=== PATIENT | female | born 1965 | race Caucasian/White ===

== ENCOUNTER → 2018-07-17 19:55 | Outpatient (REF) | payer MEDICARE, MEDICAID, SELFPAY ==
[2018-07-17 21:14] LABS: Amphetamine/Metha Screen,Urine Negative ng/mL (<1000); Barbiturates Screen,Urine Negative ng/mL (<200); Benzodiazepines Screen,Urine Negative ng/mL (<200); Cannabinoid Screen,Urine Positive ng/mL (<50); Cocaine Screen,Urine Negative ng/mL (<300); Methadone Screen,Urine Negative ng/mL (<300); Opiate Screen,Urine Negative ng/mL (<300); Phencyclidine Screen,Urine Negative ng/mL (<25)
== END ==
LOC: LAB 19:55
PROVIDERS: PCP Nurse Practitioner Family; Visit Provider Nurse Practitioner Family
DX: M79.7 Fibromyalgia (principal)
CPT/HCPCS: 80305

== ENCOUNTER → 2018-08-14 12:47 | Outpatient (CLI) | payer MEDICARE, MEDICAID, SELFPAY ==
[2018-08-14 14:06] LABS: Alanine Aminotransferase 76 U/L (12-78); Albumin Level 4.2 gm/dL (3.4-5.0); Albumin/Globulin Ratio 0.9 (1.1-1.8); Alkaline Phosphatase 86 U/L (46-116); Anion Gap 16.1 mEq/L (5-15); Aspartate Amino Transferase 49 U/L (15-37); Blood Urea Nitrogen 11 mg/dL (7-18); Calcium 9.5 mg/dL (8.5-10.1); Carbon Dioxide 27 mmol/L (21.0-32.0); Chloride 102 mmol/L (98-107); Creatinine,Serum 0.78 mg/dL (0.55-1.02); Estimated Glomerular Filt Rate 77 ml/min (>60); GFR (African American) 93 ML/MIN (>60); Globulin 4.6 gm/dl (1.3-3.2); Glucose 156 mg/dL (74-106); Potassium 4.1 mmoL/L (3.5-5.1); Sodium 141 mmol/L (136-145); Total Protein,Serum 8.8 gm/dL (6.4-8.2)
[2018-08-14 14:40] LABS: Basophils # 0.1 K/mm3 (0-0.2); Basophils % 0.9 % (0.1-2.0); Eosinophils # 0.2 K/mm3 (0.0-0.4); Eosinophils % 3.1 % (0.1-12.0); Hematocrit 51.6 % (37.0-47.0); Hemoglobin 16.7 g/dL (12.2-16.2); Lymphocytes # 3.3 K/mm3 (0.7-4.5); Lymphocytes % 43.7 % (10-50); Mean Corpuscular HGB Conc 32.3 g/dL (31.8-35.4); Mean Corpuscular Hemoglobin 29.4 pg (27.0-31.2); Mean Corpuscular Volume 90.8 fl (81-99); Monocytes # 0.6 K/mm3 (0.1-1.0); Monocytes % 7.8 % (1.7-9.3); Neutrophils # 3.3 K/mm3 (1.8-7.8); Neutrophils % 44.4 % (37.0-80.0); Platelet Count 241 K/mm3 (142-424); Red Blood Count 5.69 M/mm3 (4.20-5.40); Red Cell Distribution Width 13.3 % (11.5-17.5); White Blood Count 7.4 K/mm3 (4.8-10.8)
[2018-08-14 14:44] LABS: Erythrocyte Sedimentation Rate 28 mm/hr (0-30)
== END ==
PROVIDERS: Visit Provider Emergency Medicine
DX: K57.92 Diverticulitis of intestine, part unspecified, without perforation or abscess without bleeding (principal)
CPT/HCPCS: 80053; 85025; 85651

== ENCOUNTER → 2018-10-07 12:57 | Outpatient (POV) | payer MEDICARE, MEDICAID, SELFPAY | PROVIDERS: Visit Provider Specialist | DX: M79.641 Pain in right hand (principal); M79.642 Pain in left hand; R20.2 Paresthesia of skin | CPT/HCPCS: 95886; 95909 ==

== ENCOUNTER → 2018-12-06 19:00 | Outpatient (CLI) | payer MEDICARE, MEDICAID, SELFPAY ==
[2018-12-06 19:24] LABS: Amphetamine/Metha Screen,Urine Negative ng/mL (<1000); Barbiturates Screen,Urine Negative ng/mL (<200); Benzodiazepines Screen,Urine Negative ng/mL (<200); Cannabinoid Screen,Urine Negative ng/mL (<50); Cocaine Screen,Urine Negative ng/mL (<300); Methadone Screen,Urine Negative ng/mL (<300); Opiate Screen,Urine Negative ng/mL (<300); Phencyclidine Screen,Urine Negative ng/mL (<25)
== END ==
PROVIDERS: Visit Provider Nurse Practitioner Family
DX: M79.7 Fibromyalgia (principal)
CPT/HCPCS: 80305

== ENCOUNTER → 2021-01-19 18:07 | Outpatient (CLI) | payer MEDICARE, MEDICAID, SELFPAY ==
[2021-01-19 19:03] LABS: Benzodiazepines Screen,Urine Negative ng/ml (<200)
[2021-01-19 19:04] LABS: Amphetamine/Metha Screen,Urine Negative ng/ml (<1000)
[2021-01-19 19:05] LABS: Barbiturates Screen,Urine Negative ng/ml (<200); Cannabinoid Screen,Urine Positive ng/ml (<50)
[2021-01-19 19:06] LABS: Cocaine Screen,Urine Positive ng/ml (<300)
[2021-01-19 19:07] LABS: Methadone Screen,Urine Negative ng/ml (<300); Opiate Screen,Urine Negative ng/ml (<300)
[2021-01-19 19:08] LABS: Phencyclidine Screen,Urine Negative ng/ml (<25)
== END ==
PROVIDERS: Visit Provider Emergency Medicine
DX: M79.7 Fibromyalgia (principal)
CPT/HCPCS: 80305

== ENCOUNTER → 2021-01-31 16:32 | Outpatient (CLI) | payer MEDICARE, MEDICAID, SELFPAY ==
[2021-01-31 17:19] LABS: Amphetamine/Metha Screen,Urine Negative ng/ml (<1000)
[2021-01-31 17:20] LABS: Barbiturates Screen,Urine Negative ng/ml (<200); Benzodiazepines Screen,Urine Negative ng/ml (<200)
[2021-01-31 17:21] LABS: Cannabinoid Screen,Urine Negative ng/ml (<50)
[2021-01-31 17:24] LABS: Methadone Screen,Urine Negative ng/ml (<300); Opiate Screen,Urine Negative ng/ml (<300)
[2021-01-31 17:25] LABS: Phencyclidine Screen,Urine Negative ng/ml (<25)
[2021-01-31 17:27] LABS: Cocaine Screen,Urine Negative ng/ml (<300)
== END ==
PROVIDERS: Visit Provider Emergency Medicine
DX: Z79.899 Other long term (current) drug therapy (principal)
CPT/HCPCS: 80305

== ENCOUNTER → 2021-04-05 13:29 | Outpatient (CLI) | payer MEDICARE, MEDICAID, SELFPAY ==
[2021-04-05 14:26] LABS: Amphetamine/Metha Screen,Urine Negative ng/ml (<1000)
[2021-04-05 14:27] LABS: Barbiturates Screen,Urine Negative ng/ml (<200)
[2021-04-05 14:28] LABS: Benzodiazepines Screen,Urine Negative ng/ml (<200); Cocaine Screen,Urine Negative ng/ml (<300)
[2021-04-05 14:29] LABS: Methadone Screen,Urine Negative ng/ml (<300)
[2021-04-05 14:30] LABS: Cannabinoid Screen,Urine Negative ng/ml (<50)
[2021-04-05 14:31] LABS: Opiate Screen,Urine Negative ng/ml (<300); Phencyclidine Screen,Urine Negative ng/ml (<25)
== END ==
PROVIDERS: Visit Provider Emergency Medicine
DX: M79.7 Fibromyalgia (principal)
CPT/HCPCS: 80305

== ENCOUNTER → 2021-06-01 18:08 | Outpatient (CLI) | payer MEDICARE, MEDICAID, SELFPAY ==
[2021-06-01 19:01] LABS: Amphetamine/Metha Screen,Urine Negative ng/ml (<1000)
[2021-06-01 19:02] LABS: Barbiturates Screen,Urine Negative ng/ml (<200); Benzodiazepines Screen,Urine Negative ng/ml (<200)
[2021-06-01 19:07] LABS: Cannabinoid Screen,Urine Negative ng/ml (<50); Cocaine Screen,Urine Negative ng/ml (<300)
[2021-06-01 19:08] LABS: Methadone Screen,Urine Negative ng/ml (<300)
[2021-06-01 19:11] LABS: Opiate Screen,Urine Negative ng/ml (<300); Phencyclidine Screen,Urine Negative ng/ml (<25)
== END ==
PROVIDERS: Visit Provider Emergency Medicine
DX: Z79.899 Other long term (current) drug therapy (principal)
CPT/HCPCS: 80305

== ENCOUNTER → 2021-08-02 18:53 | Outpatient (CLI) | payer MEDICARE, MEDICAID, SELFPAY ==
[2021-08-02 19:50] LABS: Benzodiazepines Screen,Urine Negative ng/ml (<200)
[2021-08-02 19:51] LABS: Amphetamine/Metha Screen,Urine Negative ng/ml (<1000)
[2021-08-02 19:52] LABS: Barbiturates Screen,Urine Negative ng/ml (<200); Cannabinoid Screen,Urine Negative ng/ml (<50)
[2021-08-02 19:53] LABS: Cocaine Screen,Urine Negative ng/ml (<300)
[2021-08-02 19:54] LABS: Methadone Screen,Urine Negative ng/ml (<300); Opiate Screen,Urine Negative ng/ml (<300)
[2021-08-02 19:55] LABS: Phencyclidine Screen,Urine Negative ng/ml (<25)
== END ==
PROVIDERS: Visit Provider Emergency Medicine
DX: M79.7 Fibromyalgia (principal)
CPT/HCPCS: 80305

== ENCOUNTER → 2021-11-02 16:00 | Outpatient (CLI) | payer MEDICARE, MEDICAID, SELFPAY ==
[2021-11-01 22:02] LABS: Basophils # 0.1 K/mm3 (0-0.2); Basophils % 1.3 % (0.1-2.0); Eosinophils # 0.3 K/mm3 (0.0-0.4); Eosinophils % 3.7 % (0.1-12.0); Hematocrit 50.3 % (37.0-47.0); Hemoglobin 16.1 g/dL (12.2-16.2); Lymphocytes # 3.1 K/mm3 (0.7-4.5); Lymphocytes % 37.6 % (10-50); Mean Corpuscular HGB Conc 32.1 g/dL (31.8-35.4); Mean Corpuscular Hemoglobin 29.7 pg (27.0-31.2); Mean Corpuscular Volume 92.6 fl (81-99); Mean Platelet Volume 9.2 fl (7.4-10.4); Monocytes # 0.5 K/mm3 (0.1-1.0); Monocytes % 5.7 % (1.7-9.3); Neutrophils # 4.3 K/mm3 (1.8-7.8); Neutrophils % 51.8 % (37.0-80.0); Platelet Count 311 K/mm3 (142-424); Red Blood Count 5.43 M/mm3 (4.20-5.40); Red Cell Distribution Width 13.2 % (11.5-17.5); White Blood Count 8.3 K/mm3 (4.8-10.8)
[2021-11-01 22:25] LABS: Alanine Aminotransferase 23 U/L (12-78); Albumin Level 4.9 g/dl (3.5-5.0); Albumin/Globulin Ratio 1.6 (1.1-1.8); Alkaline Phosphatase 57 U/L (38-126); Anion Gap 16.8 mEq/L (5-15); Aspartate Amino Transferase 32 U/L (14-36); Bilirubin,Total 0.6 mg/dl (0.2-1.3); Blood Urea Nitrogen 14 mg/dl (7-17); Carbon Dioxide 24 mmol/L (22.0-30.0); Chloride 104 mmol/L (98-107); Chol/HDL Ratio 3.9 (1-3.5); Cholesterol 198 mg/dl (140-200); Estimated Glomerular Filt Rate 103 ml/min (>60); GFR (African American) 124 ML/MIN (>60); Glucose 132 mg/dl (74-100); HDL Cholesterol 51 mg/dl (40-60); Potassium 3.8 mmoL/L (3.5-5.1); Sodium 141 mmol/L (136-145); Total Protein,Serum 7.9 g/dl (6.3-8.2); Triglycerides 131 mg/dl (30-150); VLDL Cholesterol 26 mg/dL (0-40)
[2021-11-01 22:36] LABS: Direct LDL Cholesterol 120.37 mg/dL (100-129)
[2021-11-01 22:41] LABS: Free T4 (Free Thyroxine) 1.22 ng/dl (0.78-2.19)
[2021-11-01 22:54] LABS: Thyroid Stimulating Hormone 1.54 uIU/mL (0.465-4.68)
[2021-11-02 15:17] LABS: Benzodiazepines Screen,Urine Negative ng/ml (<200)
[2021-11-02 15:18] LABS: Amphetamine/Metha Screen,Urine Negative ng/ml (<1000)
[2021-11-02 15:19] LABS: Barbiturates Screen,Urine Negative ng/ml (<200); Cannabinoid Screen,Urine Negative ng/ml (<50)
[2021-11-02 15:20] LABS: Cocaine Screen,Urine Negative ng/ml (<300)
[2021-11-02 15:21] LABS: Methadone Screen,Urine Negative ng/ml (<300); Opiate Screen,Urine Positive ng/ml (<300)
[2021-11-02 15:22] LABS: Phencyclidine Screen,Urine Negative ng/ml (<25)
== END ==
PROVIDERS: Visit Provider Emergency Medicine
DX: E03.9 Hypothyroidism, unspecified (principal); M79.7 Fibromyalgia; R53.83 Other fatigue; E55.9 Vitamin D deficiency, unspecified; Z79.899 Other long term (current) drug therapy
CPT/HCPCS: 80053; 80061; 80305; 82306; 84439; 84443; 85025

== ENCOUNTER → 2021-12-26 19:03 | Outpatient (CLI) | payer MEDICARE, MEDICAID, SELFPAY ==
[2021-12-26 18:07] LABS: Amphetamine/Metha Screen,Urine Negative ng/ml (<1000)
[2021-12-26 18:08] LABS: Barbiturates Screen,Urine Negative ng/ml (<200); Benzodiazepines Screen,Urine Negative ng/ml (<200)
[2021-12-26 18:09] LABS: Cannabinoid Screen,Urine Negative ng/ml (<50)
[2021-12-26 18:10] LABS: Cocaine Screen,Urine Negative ng/ml (<300); Methadone Screen,Urine Negative ng/ml (<300)
[2021-12-26 18:11] LABS: Opiate Screen,Urine Negative ng/ml (<300)
[2021-12-26 18:12] LABS: Phencyclidine Screen,Urine Negative ng/ml (<25)
== END ==
PROVIDERS: Visit Provider Emergency Medicine
DX: M79.7 Fibromyalgia (principal)
CPT/HCPCS: 80305

== ENCOUNTER → 2022-03-08 07:01 | Outpatient (CLI) | payer MEDICARE, MEDICAID, SELFPAY ==
[2022-03-07 19:04] LABS: Amphetamine/Metha Screen,Urine Negative ng/ml (<1000)
[2022-03-07 19:05] LABS: Barbiturates Screen,Urine Negative ng/ml (<200)
[2022-03-07 19:06] LABS: Benzodiazepines Screen,Urine Negative ng/ml (<200); Cannabinoid Screen,Urine Negative ng/ml (<50)
[2022-03-07 19:07] LABS: Cocaine Screen,Urine Negative ng/ml (<300); Methadone Screen,Urine Negative ng/ml (<300)
[2022-03-07 19:08] LABS: Opiate Screen,Urine Negative ng/ml (<300)
[2022-03-07 19:09] LABS: Phencyclidine Screen,Urine Negative ng/ml (<25)
== END ==
PROVIDERS: PCP Emergency Medicine; Visit Provider Emergency Medicine
DX: Z79.899 Other long term (current) drug therapy (principal)
CPT/HCPCS: 80305

== ENCOUNTER → 2022-05-05 16:24 | Outpatient (CLI) | payer MEDICARE, MEDICAID, SELFPAY ==
[2022-05-05 16:03] LABS: Phencyclidine Screen,Urine Negative ng/ml (<25)
[2022-05-05 16:04] LABS: Amphetamine/Metha Screen,Urine Negative ng/ml (<1000); Barbiturates Screen,Urine Negative ng/ml (<200)
[2022-05-05 16:05] LABS: Benzodiazepines Screen,Urine Negative ng/ml (<200)
[2022-05-05 16:06] LABS: Cannabinoid Screen,Urine Negative ng/ml (<50); Cocaine Screen,Urine Negative ng/ml (<300)
[2022-05-05 16:07] LABS: Methadone Screen,Urine Negative ng/ml (<300)
[2022-05-05 16:08] LABS: Opiate Screen,Urine Negative ng/ml (<300)
== END ==
PROVIDERS: Visit Provider Emergency Medicine
DX: M79.7 Fibromyalgia (principal)
CPT/HCPCS: 80305

== ENCOUNTER → 2022-05-17 15:40 | Outpatient (CLI) | payer MEDICARE, MEDICAID, SELFPAY ==
--- NOTE | 2022-05-17 15:41 | CT_ITS ---
FINAL REPORT CLINICAL HISTORY: lung cancer screening PATIENT SMOKES 12 CIGARETTES PER DAY X 42 YEARS FINDINGS: Low-Dose Chest CT Axial images were obtained from the lung apex to the mid abdomen by computed tomography. Low-dose protocol was utilized. CTDI vol (mGy): 2.90 DLP (mGy-cm): 103.42 There is no axillary adenopathy. There is no hilar or mediastinal adenopathy. The heart is proper size. There is no pericardial or pleural effusion. Limited images of the upper abdomen demonstrate postoperative changes from cholecystectomy. Lung window images demonstrate a 3 mm nodule in the lingula, well seen on image 49 of series 4. IMPRESSION: Lung RADS category 2. Recommend 12 month follow-up low-dose chest CT. Reviewed, Interpreted and Dictated by Chang Bradford MD Transcribed by Rachel Gramajo Authenticated and [facility]
== END ==
PROVIDERS: Visit Provider Emergency Medicine
DX: Z87.891 Personal history of nicotine dependence (principal); Z12.2 Encounter for screening for malignant neoplasm of respiratory organs
CPT/HCPCS: 71271

== ENCOUNTER → 2022-07-03 14:32 | Outpatient (CLI) | payer MEDICARE, MEDICAID, SELFPAY ==
[2022-07-03 18:57] LABS: Amphetamine/Metha Screen,Urine Negative ng/ml (<1000)
[2022-07-03 18:58] LABS: Barbiturates Screen,Urine Negative ng/ml (<200); Benzodiazepines Screen,Urine Negative ng/ml (<200)
[2022-07-03 18:59] LABS: Cannabinoid Screen,Urine Negative ng/ml (<50); Cocaine Screen,Urine Negative ng/ml (<300)
[2022-07-03 19:00] LABS: Methadone Screen,Urine Negative ng/ml (<300)
[2022-07-03 19:01] LABS: Opiate Screen,Urine Negative ng/ml (<300); Phencyclidine Screen,Urine Negative ng/ml (<25)
== END ==
PROVIDERS: PCP Emergency Medicine; Visit Provider Emergency Medicine
DX: M79.7 Fibromyalgia (principal)
CPT/HCPCS: 80305

== ENCOUNTER → 2022-08-30 15:38 | Outpatient (CLI) | payer MEDICARE, MEDICAID, SELFPAY ==
[2022-08-30 19:10] LABS: Amphetamine/Metha Screen,Urine Negative ng/ml (<1000)
[2022-08-30 19:11] LABS: Barbiturates Screen,Urine Negative ng/ml (<200); Benzodiazepines Screen,Urine Negative ng/ml (<200)
[2022-08-30 19:12] LABS: Cannabinoid Screen,Urine Negative ng/ml (<50)
[2022-08-30 19:13] LABS: Cocaine Screen,Urine Negative ng/ml (<300)
[2022-08-30 19:14] LABS: Methadone Screen,Urine Negative ng/ml (<300)
[2022-08-30 19:15] LABS: Opiate Screen,Urine Negative ng/ml (<300)
[2022-08-30 19:16] LABS: Phencyclidine Screen,Urine Negative ng/ml (<25)
== END ==
PROVIDERS: PCP Emergency Medicine; Visit Provider Emergency Medicine
DX: M79.7 Fibromyalgia (principal); Z79.899 Other long term (current) drug therapy
CPT/HCPCS: 80305

== ENCOUNTER → 2022-10-30 23:30 | Outpatient (CLI) | payer MEDICARE, MEDICAID, SELFPAY ==
[2022-10-30 18:24] LABS: Barbiturates Screen,Urine Negative ng/ml (<200)
[2022-10-30 18:25] LABS: Benzodiazepines Screen,Urine Negative ng/ml (<200)
[2022-10-30 18:26] LABS: Cannabinoid Screen,Urine Negative ng/ml (<50); Cocaine Screen,Urine Negative ng/ml (<300)
[2022-10-30 18:28] LABS: Methadone Screen,Urine Negative ng/ml (<300)
[2022-10-30 18:29] LABS: Opiate Screen,Urine Negative ng/ml (<300); Phencyclidine Screen,Urine Negative ng/ml (<25)
[2022-11-01 16:04] LABS: Amphetamine/Metha Screen,Urine Negative ng/ml (<1000)
== END ==
PROVIDERS: PCP Emergency Medicine; Visit Provider Emergency Medicine
DX: Z79.899 Other long term (current) drug therapy (principal)
CPT/HCPCS: 80305

== ENCOUNTER → 2022-12-25 17:54 | Outpatient (CLI) | payer MEDICARE, MEDICAID, SELFPAY ==
[2022-12-25 19:42] LABS: Amphetamine/Metha Screen,Urine Negative ng/ml (<1000)
[2022-12-25 19:52] LABS: Barbiturates Screen,Urine Negative ng/ml (<200); Benzodiazepines Screen,Urine Negative ng/ml (<200)
[2022-12-25 19:53] LABS: Cannabinoid Screen,Urine Negative ng/ml (<50)
[2022-12-25 19:54] LABS: Cocaine Screen,Urine Negative ng/ml (<300); Methadone Screen,Urine Negative ng/ml (<300)
[2022-12-25 19:55] LABS: Opiate Screen,Urine Negative ng/ml (<300)
[2022-12-25 19:56] LABS: Phencyclidine Screen,Urine Negative ng/ml (<25)
== END ==
PROVIDERS: PCP Emergency Medicine; Visit Provider Emergency Medicine
DX: M79.7 Fibromyalgia (principal)
CPT/HCPCS: 80305

== ENCOUNTER → 2023-02-21 15:12 | Outpatient (CLI) | payer MEDICARE, MEDICAID, SELFPAY ==
[2023-02-21 19:07] LABS: Alanine Aminotransferase 21 U/L (12-78); Albumin Level 4.8 g/dl (3.5-5.0); Albumin/Globulin Ratio 1.5 (1.1-1.8); Alkaline Phosphatase 65 U/L (38-126); Anion Gap 17.6 mEq/L (5-15); Aspartate Amino Transferase 31 U/L (14-36); Bilirubin,Total 0.5 mg/dl (0.2-1.3); Blood Urea Nitrogen 12 mg/dl (7-17); Calcium 9.8 mg/dl (8.4-10.2); Carbon Dioxide 26 mmol/L (22.0-30.0); Chloride 101 mmol/L (98-107); Estimated Glomerular Filt Rate 102 ml/min (>60); GFR (African American) 124 ML/MIN (>60); Globulin 3.2 g/dL (1.3-3.2); Glucose 105 mg/dl (74-100); Potassium 4.6 mmoL/L (3.5-5.1); Sodium 140 mmol/L (136-145)
[2023-02-21 19:55] LABS: Amphetamine/Metha Screen,Urine Negative ng/ml (<1000)
[2023-02-21 19:56] LABS: Barbiturates Screen,Urine Negative ng/ml (<200)
[2023-02-21 19:57] LABS: Benzodiazepines Screen,Urine Negative ng/ml (<200)
[2023-02-21 19:58] LABS: Cannabinoid Screen,Urine Positive ng/ml (<50)
[2023-02-21 19:59] LABS: Cocaine Screen,Urine Negative ng/ml (<300); Methadone Screen,Urine Negative ng/ml (<300)
[2023-02-21 20:00] LABS: Opiate Screen,Urine Positive ng/ml (<300)
[2023-02-21 20:01] LABS: Phencyclidine Screen,Urine Negative ng/ml (<25)
[2023-02-27 14:41] LABS: HBsAg Screen Negative (Negative); HCV Ab Reactive (Non Reactive); Hep A Ab, IGM Negative (Negative); Hep B Core Ab, IgM Negative (Negative)
== END ==
PROVIDERS: PCP Emergency Medicine; Visit Provider Emergency Medicine
DX: M79.7 Fibromyalgia (principal); I10 Essential (primary) hypertension; R76.8 Other specified abnormal immunological findings in serum; B34.8 Other viral infections of unspecified site; B17.8 Other specified acute viral hepatitis
CPT/HCPCS: 80053; 80074; 80305; 87522

== ENCOUNTER → 2023-04-17 23:35 | Outpatient (CLI) | payer MEDICARE, MEDICAID, SELFPAY ==
[2023-04-17 19:40] LABS: Amphetamine/Metha Screen,Urine Negative ng/ml (<1000)
[2023-04-17 19:41] LABS: Barbiturates Screen,Urine Negative ng/ml (<200); Benzodiazepines Screen,Urine Negative ng/ml (<200)
[2023-04-17 19:42] LABS: Cannabinoid Screen,Urine Negative ng/ml (<50)
[2023-04-17 19:43] LABS: Cocaine Screen,Urine Negative ng/ml (<300)
[2023-04-17 19:44] LABS: Methadone Screen,Urine Negative ng/ml (<300); Opiate Screen,Urine Positive ng/ml (<300)
[2023-04-17 19:45] LABS: Phencyclidine Screen,Urine Negative ng/ml (<25)
== END ==
PROVIDERS: PCP Emergency Medicine; Visit Provider Emergency Medicine
DX: M79.7 Fibromyalgia (principal)
CPT/HCPCS: 80305

== ENCOUNTER → 2023-06-11 13:33 | Outpatient (CLI) | payer MEDICARE, MEDICAID, SELFPAY ==
[2023-06-11 19:33] LABS: Benzodiazepines Screen,Urine Negative ng/ml (<200)
[2023-06-11 19:34] LABS: Amphetamine/Metha Screen,Urine Negative ng/ml (<1000); Barbiturates Screen,Urine Negative ng/ml (<200)
[2023-06-11 19:35] LABS: Cocaine Screen,Urine Negative ng/ml (<300)
[2023-06-11 19:36] LABS: Cannabinoid Screen,Urine Negative ng/ml (<50); Methadone Screen,Urine Negative ng/ml (<300)
[2023-06-11 19:37] LABS: Opiate Screen,Urine Negative ng/ml (<300)
[2023-06-11 19:38] LABS: Phencyclidine Screen,Urine Negative ng/ml (<25)
== END ==
PROVIDERS: PCP Emergency Medicine; Visit Provider Emergency Medicine
DX: E11.9 Type 2 diabetes mellitus without complications (principal); N39.0 Urinary tract infection, site not specified; R35.0 Frequency of micturition; M79.7 Fibromyalgia
CPT/HCPCS: 80305; 87086

== ENCOUNTER → 2023-08-07 07:12 | Outpatient (CLI) | payer MEDICARE, MEDICAID, SELFPAY ==
[2023-08-07 20:34] LABS: Amphetamine/Metha Screen,Urine Negative ng/ml (<1000)
[2023-08-07 20:35] LABS: Barbiturates Screen,Urine Negative ng/ml (<200)
[2023-08-07 20:36] LABS: Cannabinoid Screen,Urine Positive ng/ml (<50)
[2023-08-07 20:40] LABS: Cocaine Screen,Urine Negative ng/ml (<300)
[2023-08-07 20:41] LABS: Methadone Screen,Urine Negative ng/ml (<300)
[2023-08-07 20:42] LABS: Opiate Screen,Urine Negative ng/ml (<300)
[2023-08-07 20:43] LABS: Phencyclidine Screen,Urine Negative ng/ml (<25)
[2023-08-07 20:45] LABS: Benzodiazepines Screen,Urine Negative ng/ml (<200)
== END ==
PROVIDERS: PCP Emergency Medicine; Visit Provider Emergency Medicine
DX: M79.7 Fibromyalgia (principal)
CPT/HCPCS: 80305

== ENCOUNTER 2023-10-11 12:38 | Outpatient (CLI) | payer MEDICARE, MEDICAID, SELFPAY ==
[2023-10-11 13:16] LABS: Phencyclidine Screen,Urine Negative ng/ml (<25)
[2023-10-11 13:24] LABS: Amphetamine/Metha Screen,Urine Negative ng/ml (<1000); Barbiturates Screen,Urine Negative ng/ml (<200)
[2023-10-11 13:25] LABS: Benzodiazepines Screen,Urine Negative ng/ml (<200)
[2023-10-11 13:26] LABS: Cannabinoid Screen,Urine Negative ng/ml (<50); Cocaine Screen,Urine Negative ng/ml (<300)
[2023-10-11 13:27] LABS: Methadone Screen,Urine Negative ng/ml (<300)
[2023-10-11 13:28] LABS: Opiate Screen,Urine Positive ng/ml (<300)
[2023-10-15 23:07] LABS: Codeine Negative (Cutoff=100); Hydrocodone Positive (.); Hydromorphone Positive (.); Morphine Negative (Cutoff=100); Opiates Positive (.); Oxymorphone (GC/MS) 161 ng/mL (Cutoff=100)
[2023-10-17 23:08] LABS: Gabapentin,Urine 10.1 ug/mL (.)
== END 2023-10-11 23:59 ==
LOC: LAB.DROPOF 12:38
PROVIDERS: PCP Nurse Practitioner Family; Visit Provider Nurse Practitioner Family
DX: Z79.899 Other long term (current) drug therapy (principal)
CPT/HCPCS: 80307; 80361; 80365; G0480

== ENCOUNTER 2023-11-13 19:23 | Outpatient (CLI) | payer MEDICARE, MEDICAID, SELFPAY ==
[2023-11-13 18:43] LABS: Basophils # 0.1 K/mm3 (0-0.2); Basophils % 0.7 % (0.1-2.0); Eosinophils # 0.2 K/mm3 (0.0-0.4); Eosinophils % 2.1 % (0.1-12.0); Hematocrit 47.9 % (37.0-47.0); Hemoglobin 16.3 g/dL (12.2-16.2); Lymphocytes # 3.2 K/mm3 (0.7-4.5); Lymphocytes % 36.7 % (10-50); Mean Corpuscular HGB Conc 34.1 g/dL (31.8-35.4); Monocytes # 0.6 K/mm3 (0.1-1.0); Monocytes % 7.2 % (1.7-9.3); Neutrophils # 4.7 K/mm3 (1.8-7.8); Neutrophils % 53.2 % (37.0-80.0); Platelet Count 267 K/mm3 (142-424); Red Blood Count 5.44 M/mm3 (4.20-5.40); Red Cell Distribution Width 13.2 % (11.5-17.5); White Blood Count 8.8 K/mm3 (4.8-10.8)
[2023-11-13 18:47] LABS: Alanine Aminotransferase 19 U/L (12-78); Albumin Level 4.9 g/dl (3.5-5.0); Albumin/Globulin Ratio 1.4 (1.1-1.8); Alkaline Phosphatase 75 U/L (38-126); Anion Gap 12.3 mEq/L (5-15); Aspartate Amino Transferase 27 U/L (14-36); Bilirubin,Total 0.4 mg/dl (0.2-1.3); Blood Urea Nitrogen 13 mg/dl (7-17); Calcium 10.1 mg/dl (8.4-10.2); Carbon Dioxide 28 mmol/L (22.0-30.0); Chloride 104 mmol/L (98-107); Cholesterol 218 mg/dl (140-200); Estimated Glomerular Filt Rate 85 ml/min (>60); GFR (African American) 103 ML/MIN (>60); Globulin 3.4 g/dL (1.3-3.2); Glucose 115 mg/dl (74-100); HDL Cholesterol 54 mg/dl (40-60); Potassium 4.3 mmoL/L (3.5-5.1); Sodium 140 mmol/L (136-145); Total Protein,Serum 8.3 g/dl (6.3-8.2); Triglycerides 175 mg/dl (30-150); VLDL Cholesterol 35 mg/dL (0-40)
[2023-11-13 18:58] LABS: Direct LDL Cholesterol 116.78 mg/dL (100-129)
[2023-11-13 20:24] LABS: Hemoglobin A1C 5.7 % (4.0-6.0)
[2023-11-17 13:15] LABS: HBsAg Screen Negative (Negative); HCV Ab Reactive (Non Reactive); Hep A Ab, IGM Negative (Negative); Hep B Core Ab, IgM Negative (Negative)
[2023-11-18 09:47] LABS: Hepatitis B Core Antibody, IgM Negative
== END 2023-11-13 23:59 ==
LOC: LAB.DROPOF 19:23
PROVIDERS: PCP Internal Medicine; Visit Provider Internal Medicine
DX: R53.83 Other fatigue (principal); Z86.39 Personal history of other endocrine, nutritional and metabolic disease; E78.5 Hyperlipidemia, unspecified; E05.90 Thyrotoxicosis, unspecified without thyrotoxic crisis or storm
CPT/HCPCS: 80053; 80061; 80074; 83036; 84443; 85025

== ENCOUNTER 2024-03-12 14:55 | Outpatient (CLI) | payer MEDICARE, MEDICAID, SELFPAY ==
--- NOTE | 2024-03-12 15:17 | XR_ITS ---
FINAL REPORT CLINICAL HISTORY: back pain bilateral leg pain COMPARISON: None FINDINGS: LUMBAR SPINE: No fracture is identified. Minimal diffuse degenerative changes present. Alignment is normal. IMPRESSION: Minimal diffuse degenerative changes present. Reviewed, Interpreted and Dictated by Sonny Paredes MD Transcribed by Sanaz Caballero Authenticated and [facility]
--- NOTE | 2024-03-12 15:17 | XR_ITS ---
FINAL REPORT CLINICAL HISTORY: back pain neck pain with arm pain COMPARISON: None FINDINGS: CERVICAL SPINE: No fracture is present. Alignment is normal. No prevertebral soft tissue swelling seen. Mild multilevel degenerative disc disease is present, most severe at the C5-6 level.. IMPRESSION: 1. Degenerative disc disease. 2. No fracture. Reviewed, Interpreted and Dictated by Sonny Paredes MD Transcribed by Sanaz Caballero Authenticated and [facility]
[2024-03-12 16:32] LABS: Hemoglobin A1C 5.8 % (4.0-6.0)
[2024-03-12 16:52] LABS: Chol/HDL Ratio 3.2 (1-3.5); Cholesterol 176 mg/dl (140-200); HDL Cholesterol 55 mg/dl (40-60); Triglycerides 98 mg/dl (30-150); VLDL Cholesterol 20 mg/dL (0-40)
[2024-03-12 17:03] LABS: Direct LDL Cholesterol 99.24 mg/dL (100-129)
[2024-03-12 17:10] LABS: 25-OH Vitamin D, Total 27.8 ng/mL (30-100)
== END 2024-03-12 23:59 | disposition home or self-care (01) ==
LOC: LAB 14:59
PROVIDERS: PCP Internal Medicine; Visit Provider Internal Medicine
DX: M54.2 Cervicalgia (principal); M54.9 Dorsalgia, unspecified; E55.9 Vitamin D deficiency, unspecified; E03.9 Hypothyroidism, unspecified; R73.03 Prediabetes
CPT/HCPCS: 36415; 72040; 72100; 80061; 82306; 83036

== ENCOUNTER 2024-05-14 16:33 | Outpatient (CLI) | payer MEDICARE, MEDICAID, SELFPAY ==
--- NOTE | 2024-05-14 16:33 | MM_ITS ---
PROCEDURE INFORMATION: Exam: MG Bilateral Screening 3D Mammography Exam date and time: 05/14/2024 4:28 PM Age: 58 years old Clinical indication: Screening exam. TECHNIQUE: Imaging protocol: Bilateral Screening tomosynthesis and 2D mammography including computer-aided detection (CAD) when performed. COMPARISON: 1. MG Screening-Bilateral Mammography 10/08/2018 3:37 PM 2. MG DMSB DIG MAMM-SCREEN JOHANN 08/09/2016 4:09 PM FINDINGS: MAMMOGRAPHY: Breast composition: There are scattered areas of fibroglandular density. Mass: No suspicious masses. Architectural distortion: None. Calcifications: No suspicious calcifications. Asymmetric density: None. Skin thickening: None. Axillary adenopathy: None. IMPRESSION: No mammographic evidence of malignancy. Annual screening is recommended unless otherwise clinically indicated. ASSESSMENT: BI-RADS Category 1: Negative
== END 2024-05-14 23:59 | disposition home or self-care (01) ==
LOC: RAD 16:33
PROVIDERS: PCP Internal Medicine; Visit Provider Internal Medicine
DX: Z12.31 Encounter for screening mammogram for malignant neoplasm of breast (principal)
CPT/HCPCS: 77063; 77067

== ENCOUNTER 2024-06-03 08:56 | Outpatient (CLI) | payer MEDICARE, MEDICAID, SELFPAY ==
[2024-06-03 19:37] LABS: 25-OH Vitamin D, Total 21.6 ng/mL (30-100)
[2024-06-03 19:44] LABS: Microalbumin/Creatinine Ratio 27.2
[2024-06-03 19:45] LABS: Creatinine,Urine Random 36 mg/dL (Not Estab.)
[2024-06-03 19:55] LABS: Thyroid Stimulating Hormone 0.79 uIU/mL (0.465-4.68)
== END 2024-06-03 23:59 | disposition home or self-care (01) ==
LOC: LAB.DROPOF 06-05 08:56
PROVIDERS: PCP Internal Medicine; Visit Provider Internal Medicine
DX: E03.9 Hypothyroidism, unspecified (principal); R73.03 Prediabetes; E55.9 Vitamin D deficiency, unspecified
CPT/HCPCS: 82043; 82306; 82570; 84443

== ENCOUNTER 2024-06-23 07:37 | Outpatient (CLI) | payer MEDICARE, MEDICAID, SELFPAY ==
--- NOTE | 2024-06-23 07:50 | US_ITS ---
FINAL REPORT CLINICAL HISTORY: screening progression of cirrhosis COMPARISON: None FINDINGS: ABDOMINAL ULTRASOUND RUQ: Sonographic images of the right upper quadrant were obtained. The pancreas is partially obscured. There is coarsening of the liver parenchyma, consistent with a clinical diagnosis of cirrhosis. The gallbladder has been surgically resected. There is no evidence of biliary ductal dilatation.The common duct measures 2 mm. There is a lobular hypoechoic focus in the region of the right renal pelvis, 2.2 x 2.1 cm in size, most consistent in appearance with a renal parapelvic cyst. IMPRESSION: Coarsening of the liver parenchyma, consistent with the clinical diagnosis of cirrhosis. There is no evidence of biliary ductal dilatation. Prior cholecystectomy. Reviewed, Interpreted and Dictated by Chang Bradford MD Transcribed by Sanaz Caballero Authenticated and [facility]
== END 2024-06-23 23:59 | disposition home or self-care (01) ==
LOC: RAD 07:38
PROVIDERS: PCP Internal Medicine; Visit Provider Internal Medicine
DX: K74.60 Unspecified cirrhosis of liver (principal)
CPT/HCPCS: 76705

== ENCOUNTER 2024-07-02 15:18 | Outpatient (CLI) | payer MEDICARE, MEDICAID, SELFPAY ==
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
[2024-07-02 15:51] LABS: Blood Urea Nitrogen 15 mg/dl (7-17); Estimated Glomerular Filt Rate 73 ml/min (>60); GFR (African American) 88 ML/MIN (>60)
[2024-07-02] MEDS: SODIUM CHLORIDE 0.9% 10ML SYR (RAD ONLY) 10 ML IV (16:17)
[2024-07-02] MEDS: GADOTERIDOL INJ 20ML SYRINGE 12 ML IV (16:17)
== END 2024-07-02 23:59 | disposition home or self-care (01) ==
PROVIDERS: PCP Internal Medicine; Visit Provider Internal Medicine
DX: M50.90 Cervical disc disorder, unspecified, unspecified cervical region (principal)
CPT/HCPCS: 72156; 82565; 84520; A9576

== ENCOUNTER 2025-02-25 12:00 | Outpatient (CLI) | payer MEDICARE, SELFPAY ==
[2025-02-25 17:39] LABS: Basophils # 0.1 K/mm3 (0-0.2); Basophils % 0.7 % (0.1-2.0); Eosinophils # 0.2 Kmm3 (0.0-0.4); Hematocrit 45.6 % (37.0-47.0); Immature Granulocytes # 0.01 10^3uL; Immature Granulocytes % 0.1 %; Lymphocytes # 2.6 K/mm3 (0.7-4.5); Lymphocytes % 35.2 % (10-50); Mean Corpuscular HGB Conc 32.9 g/dL (31.8-35.4); Mean Corpuscular Hemoglobin 28.5 pg (27.0-31.2); Mean Corpuscular Volume 86.5 fl (81-99); Mean Platelet Volume 9.3 fl (7.4-10.4); Monocytes # 0.8 K/mm3 (0.1-1.0); Monocytes % 10.5 % (1.7-9.3); Neutrophils # 3.7 K/mm3 (1.8-7.8); Neutrophils % 50.5 % (37.0-80.0); Nucleated Red Blood Cells # 0 10^3/uL; Nucleated Red Blood Cells % 0 %; Platelet Count 250 K/mm3 (142-424); Red Blood Count 5.27 M/mm3 (4.20-5.40); Red Cell Distribution Width 12.7 % (11.5-17.5); Red Cell Distribution Width-SD 39.9 fL; White Blood Count 7.3 K/mm3 (4.8-10.8)
[2025-02-25 18:10] LABS: Alanine Aminotransferase 14 U/L (12-78); Albumin Level 4.7 g/dl (3.5-5.0); Albumin/Globulin Ratio 1.6 (1.1-1.8); Alkaline Phosphatase 53 U/L (38-126); Aspartate Amino Transferase 23 U/L (14-36); Bilirubin,Total 0.5 mg/dl (0.2-1.3); Blood Urea Nitrogen 14 mg/dl (7-17); Calcium 9.4 mg/dl (8.4-10.2); Carbon Dioxide 30 mmol/L (22.0-30.0); Chloride 103 mmol/L (98-107); Chol/HDL Ratio 3.6 (1-3.5); Cholesterol 164 mg/dl (140-200); Estimated Glomerular Filt Rate 85 ml/min (>60); GFR (African American) 103 ML/MIN (>60); Glucose 83 mg/dl (74-100); HDL Cholesterol 46 mg/dl (40-60); Sodium 138 mmol/L (136-145); Total Protein,Serum 7.7 g/dl (6.3-8.2); Triglycerides 186 mg/dl (30-150); VLDL Cholesterol 37 mg/dL (0-40)
[2025-02-25 18:21] LABS: Hemoglobin A1C 5.6 % (4.0-6.0)
[2025-02-25 18:24] LABS: Free T4 (Free Thyroxine) 1.02 ng/dl (0.78-2.19)
[2025-02-25 18:40] LABS: Thyroid Stimulating Hormone 3.07 uIU/mL (0.465-4.68)
== END 2025-02-25 23:59 | disposition home or self-care (01) ==
LOC: LAB.DROPOF 02-26 10:04
PROVIDERS: PCP Internal Medicine; Visit Provider Internal Medicine
DX: Z13.29 Encounter for screening for other suspected endocrine disorder (principal); Z13.220 Encounter for screening for lipoid disorders; Z00.00 Encounter for general adult medical examination without abnormal findings; Z13.1 Encounter for screening for diabetes mellitus; E03.9 Hypothyroidism, unspecified; R73.03 Prediabetes
CPT/HCPCS: 80053; 80061; 83036; 84439; 84443; 85025